=== PATIENT | female | born 1945 | race Caucasian/White ===

== ENCOUNTER 2022-03-13 18:28 | Emergency (ER) | payer OTHER | END 2022-03-13 23:05 | disposition other institution (70) | LOC: FER 18:28 | DX: S42.202A Unspecified fracture of upper end of left humerus, initial encounter for closed fracture (principal); S43.035A Inferior dislocation of left humerus, initial encounter; S06.9X9A Unspecified intracranial injury with loss of consciousness of unspecified duration, initial encounter; I10 Essential (primary) hypertension; E03.9 Hypothyroidism, unspecified; Z88.1 Allergy status to other antibiotic agents; Z79.890 Hormone replacement therapy; W01.0XXA Fall on same level from slipping, tripping and stumbling without subsequent striking against object, initial encounter; Y92.009 Unspecified place in unspecified non-institutional (private) residence as the place of occurrence of the external cause | CPT/HCPCS: 70450; 72125; 73020; 73200; 96374; 96375; 96376; J1170; J2270; J2405; J2704 ==